=== PATIENT | female | born 1990 | race Caucasian/White ===

== ENCOUNTER → 2017-10-01 09:02 | Outpatient (CLI) | payer OTHER, SELFPAY ==
[2017-10-01 09:49] LABS: Pregnancy, Serum, hCG Quali. POSITIVE Negative (0-9 Nonpreg)
== END ==
PROVIDERS: Family Provider Family Medicine; PCP Family Medicine; Visit Provider Family Medicine
DX: N91.2 Amenorrhea, unspecified (principal)
CPT/HCPCS: 36415; 84703

== ENCOUNTER → 2017-10-10 10:33 | Outpatient (CLI) | payer OTHER, SELFPAY ==
[2017-10-10 11:03] LABS: hCG Titer Quant., Serum 13 mIU/mL (<9 non-preg)
== END ==
PROVIDERS: Family Provider Family Medicine; PCP Family Medicine; Visit Provider Obstetrics & Gynecology
DX: O20.0 Threatened abortion (principal); Z3A.00 Weeks of gestation of pregnancy not specified
CPT/HCPCS: 36415; 84702; 86850; 86900

== ENCOUNTER → 2017-10-15 06:10 | Outpatient (CLI) | payer OTHER, SELFPAY ==
[2017-10-15 08:17] LABS: hCG Titer Quant., Serum 1 mIU/mL (<9 non-preg)
== END ==
PROVIDERS: Family Provider Family Medicine; PCP Family Medicine; Visit Provider Obstetrics & Gynecology
DX: O20.0 Threatened abortion (principal); Z3A.00 Weeks of gestation of pregnancy not specified
CPT/HCPCS: 36415; 84702

== ENCOUNTER 2017-11-27 20:10 | Emergency (ER) | payer OTHER, SELFPAY ==
[2017-11-27 20:10] VITALS: BP 122/87; PULSE 52; RESP 18; TEMP 36.4; O2SAT 96; BMI 24.1
--- NOTE | 2017-11-27 20:32 | ED.VISSUMM ---
- ER Visit Summary Date of Service: 11/27/17 Chief Complaint: Back pain History of Present Illness: The patient is a 27 F who was throwing a bag of trash into the [employer] when she felt a pulling sensation in her left lower back and developed left lower back pain radiating down her left buttock into her thigh. No groin paresthesias or lower extremity weakness. No falls. She is still able to walk but the pain is worse when she bends forward or walks. She has had a history of chronic back trouble but never anything like this. She has never had to have physical therapy or have imaging. It is currently moderate in severity. Physical Examination: Vitals are within normal limits. She is not in distress. No fever. She has paraspinal lumbar tenderness on the left but no midline tenderness, erythema, or fluctuance. Normal strength and sensation in both lower extremities. No rebound. No clonus. Reflexes normal and symmetric. Test Results: None performed Emergency Department Course and Treatment: She was given Toradol and Norflex here. I do not feel she needs emergent imaging at this time. No evidence of cauda equina or paraspinal/epidural abscess. Presentation appears consistent with sciatica. I will treat her with a Medrol Dosepak, muscle relaxers, and naproxen. Will follow up closely with her doctor and return here if worse. Treatment Plan: Follow-up with primary care physician Disposition: Home stable condition Impression: Initial encounter lumbar back pain with sciatica left-sided This note was generated with [email or web address] dictation software. It may contain incorrect words, spelling, and punctuation that were not noted in review of the chart prior to signing ED Disposition - Plan for ED Patient: Chief Complaint: Back Instructions: ED Sciatica Prescriptions: MethylPREDNISolone DosePak [Medrol DosePak] 4 mg PO UD #1 box Naproxen [Naprosyn] 500 mg PO BID PRN #20 tablet Tizanidine HCl [Zanaflex] 4 mg PO TID PRN #30 tablet PRN Reason: Pain Referrals: Yovany Ying [Primary Care Provider] - 1-2 Days if not improving
[2017-11-27 20:35] VITALS: BP 132/70; PULSE 55; RESP 14; O2SAT 99
--- NOTE | 2017-11-27 20:36 | ED.DCSUM_ITS ---
- ER Visit Summary Date of Service: 11/27/17 Chief Complaint: Back pain History of Present Illness: The patient is a 27 F who was throwing a bag of trash into the [employer] when she felt a pulling sensation in her left lower back and developed left lower back pain radiating down her left buttock into her thigh. No groin paresthesias or lower extremity weakness. No falls. She is still able to walk but the pain is worse when she bends forward or walks. She has had a history of chronic back trouble but never anything like this. She has never had to have physical therapy or have imaging. It is currently moderate in severity. Physical Examination: Vitals are within normal limits. She is not in distress. No fever. She has paraspinal lumbar tenderness on the left but no midline tenderness, erythema, or fluctuance. Normal strength and sensation in both lower extremities. No rebound. No clonus. Reflexes normal and symmetric. Test Results: None performed Emergency Department Course and Treatment: She was given Toradol and Norflex here. I do not feel she needs emergent imaging at this time. No evidence of cauda equina or paraspinal/epidural abscess. Presentation appears consistent with sciatica. I will treat her with a Medrol Dosepak, muscle relaxers, and naproxen. Will follow up closely with her doctor and return here if worse. Treatment Plan: Follow-up with primary care physician Disposition: Home stable condition Impression: Initial encounter lumbar back pain with sciatica left-sided This note was generated with [employer] dictation software. It may contain incorrect words, spelling, and punctuation that were not noted in review of the chart prior to signing ED Disposition - Plan for ED Patient: Chief Complaint: Back Instructions: ED Sciatica Prescriptions: MethylPREDNISolone DosePak [Medrol DosePak] 4 mg PO UD #1 box Naproxen [Naprosyn] 500 mg PO BID PRN #20 tablet Tizanidine HCl [Zanaflex] 4 mg PO TID PRN #30 tablet PRN Reason: Pain Referrals: Yovany Ying [Primary Care Provider] - 1-2 Days if not improving
--- NOTE | 2017-11-27 20:38 | ED.VISSUMM ---
- ER Visit Summary Date of Service: 11/27/17 Chief Complaint: [] History of Present Illness: The patient is a 27 F [] Physical Examination: [] Test Results: [] Emergency Department Course and Treatment: [] Treatment Plan: [] Disposition: [] Impression: [] This note was generated with [employer] dictation software. It may contain incorrect words, spelling, and punctuation that were not noted in review of the chart prior to signing ED Disposition - Plan for ED Patient: Chief Complaint: Back Instructions: ED Sciatica Prescriptions: MethylPREDNISolone DosePak [Medrol DosePak] 4 mg PO UD #1 box Naproxen [Naprosyn] 500 mg PO BID PRN #20 tablet Tizanidine HCl [Zanaflex] 4 mg PO TID PRN #30 tablet PRN Reason: Pain Referrals: Yovany Ying [Primary Care Provider] - 1-2 Days if not improving
[2017-11-27] MEDS: Ketorolac 60 MG/2 ML Vial IM (20:54)
[2017-11-27] MEDS: Orphenadrine 60 MG/2 ML Ampul IM (20:54)
== END 2017-11-27 21:02 | disposition home or self-care (01) ==
LOC: ED 20:31
PROVIDERS: Emergency Provider Emergency Medicine; Family Provider Family Medicine; PCP Family Medicine
DX: M54.42 Lumbago with sciatica, left side (principal)
CPT/HCPCS: 96372; 99282

== ENCOUNTER 2018-09-26 23:35 | Emergency (ER) | payer OTHER, SELFPAY ==
[2018-09-26 23:35] VITALS: BP 140/78; PULSE 98; RESP 16; TEMP 37.1; O2SAT 100; BMI 25.0
--- NOTE | 2018-09-27 | EKG12_ITS ---
Test Reason : REPEAT Blood Pressure : / mmHG Vent. Rate : 087 BPM Atrial Rate : 087 BPM P-R Int : 126 ms QRS Dur : 082 ms QT Int : 344 ms P-R-T Axes : 072 068 059 degrees QTc Int : 413 ms Normal sinus rhythm Normal ECG Confirmed by CLIFF TORO ([id number]), department editor WHITNEY TAM ([id number]) on 09/29/2018 4:29:22 PM Referred By: KURT Confirmed By:CLIFF TORO
[2018-09-27 00:04] VITALS: PULSE 107; RESP 11; O2SAT 100
[2018-09-27 00:32] LABS: Absolute Lymphocyte Count 3.38 X10^3/ul (0.83-4.51); Absolute Neutrophil Count 3.5 X10^3/uL (2.0-7.7); Basophil# 0.04 X10^3/uL; Basophil% 0.5 % (0-1); Eosinophil# 0.53 X10^3/uL; Eosinophils% 6.2 % (0-5); Hematocrit 38.3 % (37-47); Hemoglobin 13.2 g/dl (12.0-15.0); Lymphocyte # 3.38 X10^3/ul (4.0); Lymphocyte % 39.5 % (19-41); Mean Corp Hgb Conc 34.5 g/gl (32-36); Mean Corpuscular Hgb 31.7 pg (27.0-32.0); Mean Corpuscular Volume 92.1 fL (81-99); Mean Platelet Vol. 9.1 fl (6.2-12.0); Monocyte% 12.9 % (0-10); Neutrophil # 3.49 X10^3/uL (2.7-7.7); Neutrophil % 40.8 % (47-70); POSITIVE COUNT NO; POSITIVE DIFFERENTIAL NO; POSITIVE MORPHOLOGY NO; Platelet Count 322 K/mm3 (150-450); RBC Distribution Width CV 11.9 % (11.6-14.6); RBC Distribution Width SD 39.5 fl (35.1-43.9); Red Blood Count 4.16 M/mm3 (4.2-5.4); White Blood Count 8.6 K/mm3 (4.4-11.0)
[2018-09-27 00:47] LABS: Anion Gap 5 (5-15); BUN 15 mg/dL (7-18); BUN/Creat Ratio 18.5 RATIO (10-20); Calcium,Total 8.8 mg/dL (8.5-10.1); Chloride 107 mmol/L (98-107); Creatinine, Serum 0.81 mg/dL (0.55-1.02); D-Dimer Quantitative (DVT/PE) 0.36 FEU/ug/m (0.27-0.49); EST Glomerular Filtration Rate 89 mL/min (>60); Est Glom Filt Rate - Afr Amer 108 mL/min (>60); Estimated Creatinine Clearance 93.05 ml/min; Glucose 108 mg/dL (74-106); Potassium 2.9 mmol/L (3.5-5.1); Sodium Level 137 mmol/L (136-145)
--- NOTE | 2018-09-27 00:58 | ED.VIS.GEN ---
History of Present Illness Chief Complaint: Palpitations Informant: Patient Onset: Days - 2-3 Context: Gradual Onset Timing: Intermittent Quality: skipping/beating hard Location: chest Current Severity: Moderate Maximum Severity: Moderate Worsened by: nothing in particular Relieved by: nothing Associated Symptoms: sob. no chest pain. no lightheadedness/near-syncope. Narrative: Patient works here in the hospital, she is a admin secretary. She has had no significant immobilization recently except for a trip to and from [place] that was 1 month ago, she denies any pain or swelling in 1 of her legs. No history of DVT or PE. She has never had these symptoms before. There is no history of congenital heart disease in the family that she knows of, or sudden cardiac in someone who is young. She had a cold last week but it is gone, she has taken no glty-phb-naluxhx medications for decongestants. She takes no prescriptions, illicit drugs, she is a non-smoker, and drinks no caffeine. Prior similar symptoms: No Recent Illness/Hospitalization: No Past Medical History - Allergies and Home Meds Allergies/Adverse Reactions: Allergies bee venom protein (honey bee) Allergy (Verified 09/26/18 23:38) Shortness of breath Primary Care Physician: Fabrizio Motta [Primary Care Provider] - Past Medical History: None Surgical History: no surgical history Lives: Alone Smoking Status: Never smoker Drugs: None Review of Systems General: Denies: Chills, Fever, Sweats Eyes: Denies: Visual changes - bilaterally, Diplopia ENT: Denies: Rhinorrhea, Sore throat Cardiovascular: Reports: Palpitations. Denies: Chest pain Respiratory: Reports: Dyspnea. Denies: Cough, Dyspnea on exertion Gastrointestinal: Denies: Abdominal pain, Nausea, Vomiting, Diarrhea, Melena, Hematochezia Genitourinary: Denies: Dysuria, Hematuria, Frequency Musculoskeletal: Denies: Back pain, Extremity Pain Skin: Denies: Rash, Wounds Neurological: Denies: Headache, Weakness, Numbness Physical Exam Vital Signs/Narrative: Vital Signs Temp Pulse Resp BP Pulse Ox 09/27/18 00:04 107 H 11 L 100 09/26/18 23:35 98.7 F 98 16 140/78 H 100 Inital Vital Signs reviewed: Yes General: Well nourished, Well developed, No Acute Distress Head: Normocephalic, Atraumatic Eyes: Perrl, EOMI ENT: Moist mucous membranes, No rhinorrhea Neck: Supple, Nontender Cardiovascular: No murmurs, Normal S1, Normal S2, Irregular - Occasionally. Mostly regular., Tachycardia - mild Respiratory: No distress, CTA bilaterally, Chest nontender Abdomen: Soft, Nontender, Nondistended, Normal bowel sounds Back: Nontender, Normal Inspection Extremities: Nontender, No edema Skin: Normal color, No rash, No Trauma Neurological: Alert, Oriented x3, Cranial nerves II-XII grossly intact, Normal Strength, Normal Sensation Psychological: Normal affect, Normal Mood Diagnostic/Tx/Re-eval Laboratory Results 09/27/18 09/27/18 09/27/18 00:15 00:15 00:15 WBC 8.6 RBC 4.16 L Hgb 13.2 Hct 38.3 MCV 92.1 MCH 31.7 MCHC 34.5 RDW 11.9 RDW Differential 39.5 Plt Count 322 MPV 9.1 Immature Gran % (Auto) 0.100 Neut % (Auto) 40.8 L Lymph % (Auto) 39.5 [place] % (Auto) 12.9 H Eos % (Auto) 6.2 H Baso % (Auto) 0.5 Absolute Neuts (auto) 3.5 Absolute Lymphs (auto) 3.38 Total Counted Not Reportable D-Dimer Quant (PE/DVT) 0.36 Sodium 137 Potassium 2.9 L Chloride 107 Carbon Dioxide 25.0 Anion Gap 5 BUN 15 Creatinine 0.81 Estim Creat Clear Calc 93.05 Est GFR (MDRD) Af Amer 108 Est GFR (MDRD) Non-Af 89 BUN/Creatinine Ratio 18.5 Glucose 108 H Calcium 8.8 Troponin I < 0.015 - Rhythm Strip Rhythm Strip: Sinus Tach - w/ possible second rhythm Rate: 105 - EKG Initial EKG Interpretation: Sinus Rhythm, No Acute Injury Pattern, - - aberrancy w/ wide complexes. no delta wave. Prior: No Prior - Medical Decision Making Workup shows low potassium at 2.9. The rest of her tests including troponin and d-dimer are normal. Her EKG appears to show an aberrancy but no dysrhythmia. I discussed all this with Dr. Munoz on-call for cardiology, he suggest sending her home on an AV jerad ermelinda, replacing her potassium, and having her follow-up closely in the office. Patient is comfortable with that plan. ED Disposition - Plan for ED Patient: Disposition: Home or Assisted Living Diagnosis: Aberrant premature complexes, Palpitations, Hypokalemia Instructions: Premature Ventricular Contractions, ED Palpitations, ED Potassium Deficiency Prescriptions: Metoprolol Tartrate 25 mg PO BID #60 tab Potassium Chloride [K-Dur] 20 meq PO BID #20 tab Referrals: Fabrizio Motta [Primary Care Provider] - [facility] [Provider Group] (Call for appointment to be seen as soon as you are able)
[2018-09-27 01:25] VITALS: BP 118/65; PULSE 105; RESP 14; O2SAT 98
[2018-09-27] MEDS: Metoprolol Tartrate 5 MG/5 ML Vial IV (01:33)
[2018-09-27] MEDS: Potassium Chloride 10mEq/100mL 10 MEQ/100 ML IV.SOLN. 100 MEQ IV BOLUS (01:39)
[2018-09-27 01:46] VITALS: BP 131/78; PULSE 118; RESP 14; O2SAT 98
--- NOTE | 2018-09-27 01:56 | EKG12_ITS ---
Test Reason : PALPITATIONS Blood Pressure : / mmHG Vent. Rate : 114 BPM Atrial Rate : 114 BPM P-R Int : 116 ms QRS Dur : 076 ms QT Int : 312 ms P-R-T Axes : 070 059 049 degrees QTc Int : 430 ms Sinus tachycardia with Left bundle branch block Nonspecific T wave abnormality Abnormal ECG Confirmed by CLIFF TORO ([id number]), advertising editor WHITNEY TAM ([id number]) on 09/29/2018 4:30:28 PM Referred By: KURT Confirmed By:CLIFF TORO
== END 2018-09-27 03:02 | disposition home or self-care (01) ==
PROVIDERS: Emergency Provider Emergency Medicine; Family Provider Family Medicine; PCP Family Medicine
DX: I49.3 Ventricular premature depolarization (principal); R00.2 Palpitations; E87.6 Hypokalemia
CPT/HCPCS: 80048; 84484; 85025; 85379; 93005; 96365; 96375; 99284

== ENCOUNTER → 2018-10-06 09:07 | Outpatient (CLI) | payer OTHER, SELFPAY ==
[2018-09-26 23:35] VITALS: BMI 25.0
[2018-10-06 10:07] LABS: Anion Gap 6 (5-15); BUN 14 mg/dL (7-18); BUN/Creat Ratio 18.2 RATIO (10-20); Calcium,Total 8.2 mg/dL (8.5-10.1); Chloride 106 mmol/L (98-107); Creatinine, Serum 0.77 mg/dL (0.55-1.02); EST Glomerular Filtration Rate 95 mL/min (>60); Est Glom Filt Rate - Afr Amer 115 mL/min (>60); Free T3 2.8 pg/mL (2.18-3.98); Glucose 91 mg/dL (74-106); Potassium 3.5 mmol/L (3.5-5.1); Sodium Level 141 mmol/L (136-145); T4 Total, Thyroxin 7.8 ug/dL (4.8-13.9); Thyroid Stim Hormone (TSH) 1.27 uIU/mL (0.358-3.74)
== END ==
PROVIDERS: Family Provider Family Medicine; PCP Family Medicine; Referring Provider Family Medicine; Visit Provider Family Medicine
DX: I49.3 Ventricular premature depolarization (principal)
CPT/HCPCS: 36415; 80048; 84436; 84443; 84481

== ENCOUNTER → 2018-10-21 08:58 | Outpatient (CLI) | payer OTHER, SELFPAY ==
[2018-10-16 10:39] VITALS: BMI 25.2
== END ==
PROVIDERS: Family Provider Family Medicine; PCP Family Medicine; Referring Provider Internal Medicine Cardiovascular Disease; Visit Provider Internal Medicine Cardiovascular Disease
DX: R00.2 Palpitations (principal); I44.7 Left bundle-branch block, unspecified
CPT/HCPCS: 93225; 93226

== ENCOUNTER → 2018-11-04 10:55 | Outpatient (CLI) | payer OTHER, SELFPAY ==
[2018-10-16 10:39] VITALS: BMI 25.2
--- NOTE | 2018-11-04 10:56 | ECHOD_ITS ---
Reason For Study: PALPITAITONS Procedure This was a 2D Doppler, Color Flow transthoracic echocardiogram. Exam performed in department. Left Ventricle Normal LV size. Left ventricular systolic function is normal. The estimated ejection fraction is 60 %. No evidence for diastolic dysfunction. No regional wall motion abnormalities noted. Right Ventricle Normal RV size. Normal systolic function. Atria Normal left atrium. Normal right atrium. No doppler evidence for ASD. Mitral Valve There is no mitral annular calcification. Mild diffuse mitral valve thickening. Mild (1+) mitral valve insufficiency. Tricuspid Valve Normal tricuspid valve. Mild tricuspid valve insufficiency. Right ventricular systolic pressure estimated to be 30 mmHg. Aortic Valve Trisinus/trileaflet aortic valve. Normal aortic valve. Pulmonic Valve The pulmonic valve is not well visualized. Great Vessels Normal sized aortic root. Pericardium/Pleural No pericardial effusion. MMode/2D Measurements & Calculations LVIDd: 4.7 cm IVSd: 0.77 cm Ao root diam: 2.0 cm LVIDs: 3.1 cm LVPWd: 0.83 cm RVDd: 2.8 cm FS: 34.2 % LAV(MOD-bp): 32.7 ml LA A4 area: 11.9 cm2 LA dimension(2D): 3.0 cm LAV(MOD-bp) Indexed: 18.4 ml/m2 LAV(MOD-sp2): 34.3 ml LAV(MOD-sp4): 27.1 ml RA A4 area: 7.5 cm2 Time Measurements MV dec time: 0.17 sec Doppler Measurements & Calculations MV E max jose: 107.1 cm/sec Lat Peak E' Jose: 16.0 cm/sec Med Peak E' Jose: 13.0 cm/sec MV A max jose: 57.5 cm/sec E/E' lat: 6.7 E/E' med: 8.2 MV E/A: 1.9 Ao V2 max: 131.4 cm/sec LV V1 max: 108.5 cm/sec TR max jose: 258.7 cm/sec Ao max P.9 mmHg LV V1 max P.7 mmHg TR max P.8 mmHg Interpretation Summary Left ventricular systolic function is normal. The estimated ejection fraction is 60 %. Mild diffuse mitral valve thickening. Mild (1+) mitral valve insufficiency. Mild tricuspid valve insufficiency. Right ventricular systolic pressure estimated to be 30 mmHg. No evidence for diastolic dysfunction. Ordering Physician: Fabrizio Golden Referring Physician: FABRIZIO RODRIGUEZ Performed By: Marisabel Ireland, DENNIS, RVT
--- NOTE | 2018-11-04 12:49 | STRESSREP ---
Stress Test Report Date: 11-04-18 Procedure: Exercise tolerance test Indications: Palpitations; shortness of breath/dyspnea Consent: Per the patient Procedure: The patient exercised on a Cristopher protocol for 12 minutes completing Stage IV achieving a peak heart rate of 181 bpm (94 % predicted maximal heart rate) with a peak blood pressure 134/80 mmHg and a peak MET capacity of approximately 13 MET's. The baseline ECG demonstrated normal sinus rhythm; nonspecific T wave abnormality. The peak exercise ECG demonstrated no obvious ECG changes. There were no cardiac dysrhythmias pretest, during exercise, or recovery. The functional capacity was considered excellent. The patient had no complaint of chest discomfort during exercise or recovery. The examination was discontinued secondary to dyspnea. Impression: 1. Technically adequate (percent predicted maximal heart rate greater than 85%) exercise tolerance test 2. Peak exercise ECG with no obvious ECG changes 3. There were no cardiac dysrhythmias during exercise or recovery This note was generated with [employer] software. It may contain incorrect words, spelling, and punctuation that were not noted in checking the note before signing.
[2018-11-04 15:34] LABS: Potassium 3.5 mmol/L (3.5-5.1)
== END ==
PROVIDERS: Family Medicine; Family Provider Family Medicine; PCP Family Medicine; Referring Provider Internal Medicine Cardiovascular Disease; Visit Provider Internal Medicine Cardiovascular Disease
DX: R00.2 Palpitations (principal); I44.7 Left bundle-branch block, unspecified; E87.6 Hypokalemia
CPT/HCPCS: 36415; 84132; 93017; 93306

== ENCOUNTER 2019-03-12 18:22 | Emergency (ER) | payer OTHER, SELFPAY ==
[2018-10-16 10:39] VITALS: BMI 25.2
[2019-03-12 18:23] VITALS: BP 100/69; PULSE 125; RESP 17; TEMP 38.8; O2SAT 94; BMI 24.7
--- NOTE | 2019-03-12 19:10 | ED.DCSUM_ITS ---
History of Present Illness Chief Complaint: Nausea/Vomiting/Diarrhea Informant: Patient Onset: Days Current Severity: Moderate Maximum Severity: Moderate Narrative: Patient presents with abdominal cramping, nausea, dry heaves, and mild diarrhea for the past 3 days. She did not realize she been running a fever. She is been trying to drink but is only been urinating once or twice a day. She does not have dysuria. She denies shortness of breath or cough. Patient does have a history of left bundle branch block and palpitations. She saw her manager mail last week who told her she could use her metoprolol as needed only. She has not been taking it this week. Past Medical History - Allergies and Home Meds Allergies/Adverse Reactions: Allergies bee venom protein (honey bee) Allergy (Verified 03/12/19 18:23) Shortness of breath Primary Care Physician: Fabrizio Motta [Primary Care Provider] - 3-5 Days if not improving Prior records reviewed: Yes Past Medical History: - - Reviewed Surgical History: no surgical history Lives: Spouse/ Significant Other Smoking Status: Never smoker Review of Systems General: Denies: Fever Eyes: Denies: Visual changes - bilaterally ENT: Denies: Bilateral ear pain Cardiovascular: Reports: Palpitations, Heart racing Respiratory: Denies: Dyspnea, Cough, Sputum Gastrointestinal: Reports: Abdominal pain - Cramping, Nausea, Vomiting - Dry heaves, Diarrhea Genitourinary: Denies: Dysuria Skin: Denies: Rash Neurological: Denies: Headache Endocrine: Denies: Polyuria, Polydipsia Hematologic: Denies: Easy bruising Allergy: Denies: Uticaria Physical Exam Vital Signs/Narrative: Vital Signs Temp Pulse Resp BP Pulse Ox 03/12/19 18:23 102 F H 125 H 17 100/69 94 Inital Vital Signs reviewed: Yes General: Well nourished, Well developed Eyes: Perrl, EOMI ENT: Moist mucous membranes Neck: Supple Cardiovascular: Tachycardia Respiratory: No distress, CTA bilaterally Abdomen: Soft, Nontender, Hypoactive bowel sounds Back: Nontender Extremities: Nontender Skin: Normal color, No rash Neurological: Alert, Oriented x3 Psychological: Normal affect Diagnostic/Tx/Re-eval Laboratory Results 03/12/19 03/12/19 03/12/19 18:40 18:40 18:40 WBC 6.8 RBC 4.90 Hgb 15.8 H Hct 44.2 MCV 90.2 MCH 32.2 H MCHC 35.7 RDW Std Deviation 38.2 RDW Coeff of Hortencia 11.5 L Plt Count 241 MPV 8.9 Immature Gran % (Auto) 0.300 Neut % (Auto) 61.1 Lymph % (Auto) 16.3 L [place] % (Auto) 16.8 H Eos % (Auto) 4.9 Baso % (Auto) 0.6 Absolute Neuts (auto) 4.2 Absolute Lymphs (auto) 1.11 Nucleated RBC % 0 Sodium 136 Potassium 3.2 L Chloride 103 Carbon Dioxide 26.0 Anion Gap 7 BUN 12 Creatinine 0.90 Estim Creat Clear Calc 83.74 Est GFR (MDRD) Af Amer 96 Est GFR (MDRD) Non-Af 79 BUN/Creatinine Ratio 13.4 Glucose 98 Lactic Acid 1.0 Calcium 8.6 Total Bilirubin 0.60 Direct Bilirubin 0.19 AST 27 ALT 23 Alkaline Phosphatase 53 Total Protein 8.5 H Albumin 4.0 Globulin 4.5 H Lipase 109 Serum , Qual Urine Color Urine Clarity Urine pH Ur Specific [place] Urine Protein Urine Glucose (UA) Urine Ketones Urine Occult Blood Urine Nitrite Urine Bilirubin Urine Urobilinogen Ur Leukocyte Esterase Urine RBC Urine WBC Ur Squamous Epith Cells Urine Bacteria Urine Mucus 03/12/19 03/12/19 18:40 20:39 WBC RBC Hgb Hct MCV MCH MCHC RDW Std Deviation RDW Coeff of Hortencia Plt Count MPV Immature Gran % (Auto) Neut % (Auto) Lymph % (Auto) [place] % (Auto) Eos % (Auto) Baso % (Auto) Absolute Neuts (auto) Absolute Lymphs (auto) Nucleated RBC % Sodium Potassium Chloride Carbon Dioxide Anion Gap BUN Creatinine Estim Creat Clear Calc Est GFR (MDRD) Af Amer Est GFR (MDRD) Non-Af BUN/Creatinine Ratio Glucose Lactic Acid Calcium Total Bilirubin Direct Bilirubin AST ALT Alkaline Phosphatase Total Protein Albumin Globulin Lipase Serum , Qual NEGATIVE Urine Color Yellow Urine Clarity Sl. Cloudy Urine pH 6.5 Ur Specific [place] 1.010 Urine Protein 15 H Urine Glucose (UA) Normal Urine Ketones 150 H Urine Occult Blood 10 H Urine Nitrite Negative Urine Bilirubin Negative Urine Urobilinogen Normal Ur Leukocyte Esterase 25 H Urine RBC 0-5 SEEN Urine WBC 5-10 SEEN Ur Squamous Epith Cells 10-25 SEEN Urine Bacteria 2+ Urine Mucus 0 SEEN - EKG Initial EKG Interpretation: Sinus Tachycardia - Sinus tach at 109. Nonspecific T wave flattening diffusely. - Medical Decision Making Patient was given Tylenol and IV fluids. She was given Zofran for nausea. On repeat evaluation heart rate is in the 80s. She feels significantly improved. Potassium was slightly low at 3.2 and she was given 40 mEq p.o. She will be given prescription for potassium replacement the next 3 days. She will be written off work tomorrow night and cannot return the following day if still running fever. Patient is comfortable with this plan. ED Disposition - Plan for ED Patient: Disposition: Home or Assisted Living Diagnosis: Viral gastroenteritis, Hypokalemia Instructions: GASTROENTERITIS, Viral (6y-Adult) Prescriptions: Potassium Chloride [K-Dur] 20 meq PO BID #6 tab Prescription Printed Referrals: Fabrizio Motta [Primary Care Provider] - 3-5 Days if not improving
[2019-03-12] MEDS: Acetaminophen 500 MG Tablet 1000 MG PO (19:15)
[2019-03-12] MEDS: Ondansetron 4 MG/2 ML Vial IV (19:23)
[2019-03-12] MEDS: 0.9% Normal Saline 1,000 ML 1000 ML IV ×2 (19:24→20:10)
[2019-03-12 19:25] LABS: Absolute Lymphocyte Count 1.11 X10^3/uL (0.83-4.51); Absolute Neutrophil Count 4.2 X10^3/uL (2.0-7.7); Basophil# 0.04 X10^3/uL; Basophil% 0.6 % (0-1); Eosinophil# 0.33 X10^3/uL; Eosinophils% 4.9 % (0-5); Hematocrit 44.2 % (37-47); Hemoglobin 15.8 g/dL (12.0-15.0); Lymphocyte # 1.11 X10^3/ul (4.0); Lymphocyte % 16.3 % (19-41); Mean Corp Hgb Conc 35.7 g/dL (32-36); Mean Corpuscular Hgb 32.2 pg (27.0-32.0); Mean Corpuscular Volume 90.2 fL (81-99); Mean Platelet Vol. 8.9 fl (6.2-12.0); Monocyte# 1.14 X10^3/uL; Monocyte% 16.8 % (0-10); NRBC Flagged by Analyzer 0 % (0-5); Neutrophil # 4.16 X10^3/uL (2.7-7.7); Neutrophil % 61.1 % (47-70); Platelet Count 241 K/mm3 (150-450); RBC Distribution Width CV 11.5 % (11.6-14.6); RBC Distribution Width SD 38.2 fl (35.1-43.9); White Blood Count 6.8 K/mm3 (4.4-11.0)
[2019-03-12 19:46] LABS: Internal QC Validated? YES +Cl - CLEAR BKGD; Pregnancy, Serum, hCG Quali. NEGATIVE Negative
[2019-03-12 19:52] LABS: AST(SGOT) 27 U/L (15-37); Alanine Aminotransfer ALT/SGPT 23 U/L (13-56); Alkaline Phosphatase 53 U/L (45-117); Anion Gap 7 (5-15); BUN 12 mg/dL (7-18); BUN/Creat Ratio 13.4 RATIO (10-20); Bilirubin, Direct 0.19 mg/dL (0.00-0.30); Calcium,Total 8.6 mg/dL (8.5-10.1); Chloride 103 mmol/L (98-107); EST Glomerular Filtration Rate 79 mL/min (>60); Est Glom Filt Rate - Afr Amer 96 mL/min (>60); Estimated Creatinine Clearance 83.74 ml/min; Globulin 4.5 g/dL (2.2-4.2); Glucose 98 mg/dL (74-106); Lipase 109 U/L (73-393); Potassium 3.2 mmol/L (3.5-5.1); Protein, Total 8.5 g/dL (6.4-8.2); Sodium Level 136 mmol/L (136-145)
[2019-03-12 20:43] LABS: Mucous, Urine 0 SEEN /hpf (<or=2+)
[2019-03-12 20:44] VITALS: BP 104/69; PULSE 86; RESP 16; TEMP 37.4; O2SAT 98
[2019-03-12 21:09] LABS: Color, Urine Yellow (Yellow); Glucose, Dipstick Normal (Normal); Leukocyte Esterase-Dipstick 25 /ul (Negative); Nitrite-Dipstick Negative (Negative); Occult Blood-Urine 10 /ul (Negative); Protein-Dipstick 15 mg/dl (Negative); Urine Bilirubin Dipstick Negative (Negative); Urine Clarity Sl. Cloudy (Clear); Urine Urobilinogen Normal (Normal); Urine pH 6.5 (5.0 - 8.0)
[2019-03-12 21:12] LABS: Ketone-Dipstick 150 mg/dl (Negative)
[2019-03-12 21:15] LABS: Bacteria 2+ /hpf (None Seen)
[2019-03-12 21:16] LABS: Red Blood Cells-Urine 0-5 SEEN /hpf (0-5); Squamous Epithelial Cells - UA 10-25 SEEN /hpf (5-10); White Blood Cells 5-10 SEEN /hpf (0-5)
[2019-03-12 21:38] VITALS: BP 110/72; PULSE 89; RESP 15; TEMP 37.2; O2SAT 97
== END 2019-03-12 21:41 | disposition home or self-care (01) ==
PROVIDERS: Emergency Provider Emergency Medicine; Family Provider Family Medicine; PCP Family Medicine
DX: A08.4 Viral intestinal infection, unspecified (principal); E87.6 Hypokalemia; I44.7 Left bundle-branch block, unspecified; R00.2 Palpitations
CPT/HCPCS: 80048; 80076; 81001; 83605; 83690; 84703; 85025; 87040; 93005; 96361; 96374; 99285; J7030; A4216; J2405

== ENCOUNTER 2019-03-15 00:14 | Emergency (ER) | payer OTHER, SELFPAY ==
[2019-03-15 00:15] VITALS: BP 136/84; PULSE 101; RESP 18; TEMP 37.2; O2SAT 99; BMI 24.7
--- NOTE | 2019-03-15 00:19 | CT_ITS ---
STUDY: CT ABDOMEN AND PELVIS WITH CONTRAST REASON FOR EXAM: Female, 28 years old. : Abdominal pain. Previous appendectomy. RADIATION DOSAGE (If Supplied By Facility): CTDIvol = ( 11.30 ) mGy, DLP = ( 651.58 ) mGycm TECHNIQUE: Transaxial images were obtained from the dome of the diaphragm to the symphysis pubis without oral contrast. 100ml IV Isovue 370 was administered. Sagittal and coronal images were reconstructed. Individualized dose optimization techniques were used for this CT. COMPARISON: None. FINDINGS: The lung bases are clear. The liver is normal. No dilated intrahepatic biliary radicles. The gallbladder is normal with no calcifications within it. There is no pericholecystic fluid collection or streakiness The spleen is normal. The pancreas is normal. Both adrenals are normal. The kidneys are normal with no masses, calculi or hydronephrosis The stomach is normal. There is no bowel distention, acute appendicitis or diverticulitis. No constricting lesions are seen in large bowel. The abdominal wall is intact with no hernias. There is no ascites or any free intraperitoneal air. No indication of epiploic appendagitis The vascular structures in the retroperitoneum are normal. There is no retrocrural, retroperitoneal or mesenteric adenopathy. The bones and joints are normal. The urinary bladder is normal.--The uterus is normal. There is no inguinal or pelvic adenopathy. There is no inguinal hernia. . CT/Abdomen/Pelvis W IV Cont ONLY IMPRESSION: No acute findings in the abdomen or pelvis. Specifically there is no acute appendicitis or diverticulitis Electronically Signed: Orlin Acosta MD at 1:42 EDT Tel , Service support ,
--- NOTE | 2019-03-15 00:22 | ED.DCSUM_ITS ---
History of Present Illness Chief Complaint: Abd Pain Informant: Patient Onset: Days Context: Gradual Onset Timing: Continuous Current Severity: Moderate Maximum Severity: Moderate Narrative: The patient presents to the emergency department nausea, vomiting, diarrhea, abdominal pain. The patient was seen here 3 days ago. At that time, she was diagnosed with likely gastroenteritis. She was treated with potassium Zofran. She states that her nausea has improved, but now she is been having bloody diarrhea with mucus today. She is also had some diffuse abdominal cramping. She has not had any further fever. She has no history of inflammatory bowel disease. She denies any other symptoms. The patient is otherwise been in her normal state of health. She denies any recent sick contacts. Prior similar symptoms: No Recent Illness/Hospitalization: Yes Past Medical History - Allergies and Home Meds Allergies/Adverse Reactions: Allergies bee venom protein (honey bee) Allergy (Verified 03/15/19 00:20) Shortness of breath Primary Care Physician: Fabrizio Motta [Primary Care Provider] - Prior records reviewed: Yes Past Medical History: None Surgical History: no surgical history Smoking Status: Never smoker Review of Systems General: Reports: Fever. Denies: Chills, Sweats Eyes: Denies: Visual changes - bilaterally, Diplopia ENT: Denies: Rhinorrhea, Sore throat Cardiovascular: Denies: Chest pain, Palpitations Respiratory: Denies: Dyspnea, Cough, Dyspnea on exertion Gastrointestinal: Reports: Abdominal pain, Nausea, Vomiting, Diarrhea. Denies: Melena, Hematochezia Genitourinary: Denies: Dysuria, Hematuria, Frequency Musculoskeletal: Denies: Back pain, Extremity Pain Skin: Denies: Rash, Wounds Neurological: Denies: Headache, Weakness, Numbness Physical Exam Vital Signs/Narrative: Vital Signs Temp Pulse Resp BP Pulse Ox 03/15/19 00:15 98.9 F 101 H 18 136/84 H 99 Inital Vital Signs reviewed: Yes General: Well nourished, Well developed, No Acute Distress Head: Normocephalic, Atraumatic Eyes: Perrl, EOMI ENT: Moist mucous membranes, No rhinorrhea Neck: Supple, Nontender Cardiovascular: Regular rate, Regular rhythm, No murmurs Respiratory: No distress, CTA bilaterally, Chest nontender Abdomen: Soft, Nontender, Nondistended, Normal bowel sounds Back: Nontender, Normal Inspection Extremities: Nontender, No edema Skin: Normal color, No rash Neurological: Alert, Oriented x3, Cranial nerves II-XII grossly intact, Normal Strength, Normal Sensation Psychological: Normal affect, Normal Mood Diagnostic/Tx/Re-eval Clinical Impression(s) from Imaging Studies Abdomen/Pelvis CT 03/15/19 00:19 IMPRESSION: No acute findings in the abdomen or pelvis. Specifically there is no acute appendicitis or diverticulitis Electronically Signed: Orlin Acosta MD at 1:42 EDT Tel , Service support , Abnormal Lab Results 03/15/19 03/15/19 03/15/19 00:25 00:25 00:30 WBC 8.1 RBC 4.59 Hgb 14.3 Hct 40.4 MCV 88.0 MCH 31.2 MCHC 35.4 RDW Std Deviation 37.5 RDW Coeff of Hortencia 11.7 Plt Count 222 MPV 9.0 Immature Gran % (Auto) PACKAGING MATERIALS INSPECTOR Neut % (Auto) PACKAGING MATERIALS INSPECTOR Lymph % (Auto) PACKAGING MATERIALS INSPECTOR [place] % (Auto) PACKAGING MATERIALS INSPECTOR Eos % (Auto) PACKAGING MATERIALS INSPECTOR Baso % (Auto) PACKAGING MATERIALS INSPECTOR Absolute Neuts (auto) 3.1 Absolute Lymphs (auto) 1.95 Total Counted 100 Neutrophils % (Manual) 18 L Band Neutrophils % 20 H Lymphocytes % (Manual) 24 Monocytes % (Manual) 12 H Eosinophils % (Manual) 8 H Basophils % (Manual) 1 Metamyelocytes % 16 H Myelocytes % 1 H Nucleated RBC % 0 [address] Review May foll Platelet Estimate ADEQUATE RBC Morphology NORM C+C Sodium Potassium Chloride Carbon Dioxide Anion Gap BUN Creatinine Estim Creat Clear Calc Est GFR (MDRD) Af Amer Est GFR (MDRD) Non-Af BUN/Creatinine Ratio Glucose Calcium Total Bilirubin AST ALT Alkaline Phosphatase Total Protein Albumin Globulin Albumin/Globulin Ratio Lipase Urine Color Yellow Urine Clarity Sl. Cloudy Urine pH 6.0 Ur Specific [place] 1.020 Urine Protein 15 H Urine Glucose (UA) Normal Urine Ketones 50 H Urine Occult Blood 10 H Urine Nitrite Negative Urine Bilirubin Negative Urine Urobilinogen Normal Ur Leukocyte Esterase 25 H Urine RBC 0-5 SEEN Urine WBC 5-10 SEEN Ur Squamous Epith Cells 0-5 SEEN Urine Bacteria 2+ Urine Mucus 0 SEEN Urine Test Negative 03/15/19 00:30 WBC RBC Hgb Hct MCV MCH MCHC RDW Std Deviation RDW Coeff of Hortencia Plt Count MPV Immature Gran % (Auto) Neut % (Auto) Lymph % (Auto) [place] % (Auto) Eos % (Auto) Baso % (Auto) Absolute Neuts (auto) Absolute Lymphs (auto) Total Counted Neutrophils % (Manual) Band Neutrophils % Lymphocytes % (Manual) Monocytes % (Manual) Eosinophils % (Manual) Basophils % (Manual) Metamyelocytes % Myelocytes % Nucleated RBC % Diff Path Review Platelet Estimate RBC Morphology Sodium 140 Potassium 3.3 L Chloride 109 H Carbon Dioxide 24.0 Anion Gap 7 BUN 7 Creatinine 0.73 Estim Creat Clear Calc 103.24 Est GFR (MDRD) Af Amer 121 Est GFR (MDRD) Non-Af 100 BUN/Creatinine Ratio 9.6 L Glucose 85 Calcium 8.3 L Total Bilirubin 0.40 AST 28 ALT 32 Alkaline Phosphatase 54 Total Protein 7.4 Albumin 3.4 Globulin 4.0 Albumin/Globulin Ratio 0.8 L Lipase 97 Urine Color Urine Clarity Urine pH Ur Specific [place] Urine Protein Urine Glucose (UA) Urine Ketones Urine Occult Blood Urine Nitrite Urine Bilirubin Urine Urobilinogen Ur Leukocyte Esterase Urine RBC Urine WBC Ur Squamous Epith Cells Urine Bacteria Urine Mucus Urine Test - Medical Decision Making Patient presents with persistent abdominal cramping, nausea, and diarrhea with some mucus. Her fever has since resolved. Her abdomen is soft and mildly distended. IV was established. She was given fluids with improvement of her symptoms. I did obtain CT imaging. There is no significant colitis, diverticulitis, obstruction, or significant inflammatory process. Her white count is unremarkable, but she does have a left shift. Stool culture was sent but is currently pending. Given the persistence of her symptoms, I do feel that the safest thing would be to treat her for common pathogens of infectious diarrhea and the results. I do feel that she is safe for outpatient therapy and she is comfortable with this plan of care. Patient will be started on Cipro and Flagyl and given her first dose here. I am also going to add Bentyl to her regimen. She is comfortable with this plan of care. She was counseled concerning symptoms and reasons to return. She will be discharged home. Impression 1. Infectious colitis ED Disposition - Plan for ED Patient: Instructions: DIARRHEA, Bacterial (6y-Adult) Prescriptions: Dicyclomine HCl [Bentyl] 20 mg PO TIDAC #20 cap Prescription Printed Ciprofloxacin [Cipro] 500 mg PO BID #14 tab Prescription Printed metroNIDAZOLE [Flagyl] 500 mg PO Q8H #21 tab Prescription Printed Referrals: Fabrizio Motta [Primary Care Provider] -
[2019-03-15 00:30] LABS: Mucous, Urine 0 SEEN /hpf (<or=2+)
[2019-03-15 00:38] LABS: Color, Urine Yellow (Yellow); Glucose, Dipstick Normal (Normal); Ketone-Dipstick 50 mg/dl (Negative); Leukocyte Esterase-Dipstick 25 /ul (Negative); Nitrite-Dipstick Negative (Negative); Occult Blood-Urine 10 /ul (Negative); Protein-Dipstick 15 mg/dl (Negative); Urine Bilirubin Dipstick Negative (Negative); Urine Clarity Sl. Cloudy (Clear); Urine Urobilinogen Normal (Normal)
[2019-03-15] MEDS: 0.9% Normal Saline 1,000 ML 1000 ML IV (00:38)
[2019-03-15] MEDS: Ondansetron 4 MG/2 ML Vial IV (00:38)
[2019-03-15 00:41] LABS: Internal QC Validated? YES +Cl - CLEAR BKGD; Pregnancy, Urine Negative Negative
[2019-03-15 00:42] LABS: Basophil# 0.04 X10^3/uL; Eosinophil# 0.49 X10^3/uL; Hematocrit 40.4 % (37-47); Hemoglobin 14.3 g/dL (12.0-15.0); Mean Corp Hgb Conc 35.4 g/dL (32-36); Mean Corpuscular Hgb 31.2 pg (27.0-32.0); Monocyte# 1.21 X10^3/uL; NRBC Flagged by Analyzer 0 % (0-5); POSITIVE MORPHOLOGY YES; Platelet Count 222 K/mm3 (150-450); RBC Distribution Width CV 11.7 % (11.6-14.6); RBC Distribution Width SD 37.5 fl (35.1-43.9); Red Blood Count 4.59 M/mm3 (4.2-5.4); White Blood Count 8.1 K/mm3 (4.4-11.0)
[2019-03-15 00:50] LABS: Differential Indicated SCAN CRITERIA MET
[2019-03-15 00:58] LABS: Bacteria 2+ /hpf (None Seen); Red Blood Cells-Urine 0-5 SEEN /hpf (0-5); Squamous Epithelial Cells - UA 0-5 SEEN /hpf (5-10); White Blood Cells 5-10 SEEN /hpf (0-5)
[2019-03-15 01:04] LABS: ALB/GLOB Ratio 0.8 RATIO (0.9-2.4); AST(SGOT) 28 U/L (15-37); Alanine Aminotransfer ALT/SGPT 32 U/L (13-56); Albumin, Serum 3.4 g/dL (3.2-5.0); Alkaline Phosphatase 54 U/L (45-117); Anion Gap 7 (5-15); BUN 7 mg/dL (7-18); BUN/Creat Ratio 9.6 RATIO (10-20); Calcium,Total 8.3 mg/dL (8.5-10.1); Chloride 109 mmol/L (98-107); Creatinine, Serum 0.73 mg/dL (0.55-1.02); EST Glomerular Filtration Rate 100 mL/min (>60); Est Glom Filt Rate - Afr Amer 121 mL/min (>60); Estimated Creatinine Clearance 103.24 ml/min; Glucose 85 mg/dL (74-106); Lipase 97 U/L (73-393); Potassium 3.3 mmol/L (3.5-5.1); Protein, Total 7.4 g/dL (6.4-8.2); Sodium Level 140 mmol/L (136-145)
[2019-03-15 01:09] LABS: Scan Smear per Review Criteria MANUAL DIFF
[2019-03-15 01:17] LABS: Basophil 1 % (0-1); Eosinophil 8 % (0-5); Lymphocyte 24 % (19-41); Metamyelocyte 16 % (0-1); Monocyte 12 % (0-10); Myelocyte 1 (0-0); Neutrophil-Band 20 % (0-5); Neutrophil-Segmented 18 % (47-70); Total Cells Counted 100 (MANUAL DIFF)
[2019-03-15 01:18] LABS: Absolute Neutrophil Count 3.1 X10^3/uL (2.0-7.7); Lymphocyte # 1.95 X10^3/ul (4.0); Neutrophil # 3.09 X10^3/uL (2.7-7.7)
[2019-03-15 01:19] LABS: Absolute Lymphocyte Count 1.95 X10^3/uL (0.83-4.51); Platelet Estimate ADEQUATE (ADEQ); Red Cell Morphology NORM C+C NORMAL (NORM C&C)
[2019-03-15] MEDS: metroNIDAZOLE 500 MG/100 ML BAG 100 MG IV (02:20)
[2019-03-15] MEDS: Dicyclomine 10 MG Capsule 20 MG PO (02:26)
[2019-03-15] MEDS: Ciprofloxacin 400 MG/200 ML BAG 200 MG IV (02:31)
[2019-03-15 03:48] VITALS: BP 95/61; PULSE 88; RESP 16; O2SAT 98
[2019-03-17 12:26] LABS: Pathologist Review Reviewed
== END 2019-03-15 03:50 | disposition home or self-care (01) ==
LOC: ED 00:54
PROVIDERS: Emergency Provider Emergency Medicine; Family Provider Family Medicine; PCP Family Medicine
DX: A09 Infectious gastroenteritis and colitis, unspecified (principal); Z79.899 Other long term (current) drug therapy
CPT/HCPCS: 74177; 80053; 81001; 81025; 83690; 85025; 87506; 96361; 96365; 96366; 96368; 96375; 99284; J7030; J7050; Q9967; A4216; J0744; J2405

== ENCOUNTER 2023-09-06 11:47 | Emergency (ER) | payer BC, SELFPAY ==
[2023-09-06 11:48] VITALS: BP 143/86; PULSE 111; RESP 16; TEMP 36.3; O2SAT 100; BMI 22.5
--- NOTE | 2023-09-06 12:00 | EKG12_ITS ---
Test Reason : PALPS Blood Pressure : / mmHG Vent. Rate : 096 BPM Atrial Rate : 096 BPM P-R Int : 112 ms QRS Dur : 074 ms QT Int : 350 ms P-R-T Axes : 082 077 002 degrees QTc Int : 442 ms Sinus rhythm with Fusion complexes Nonspecific ST and T wave abnormality Abnormal ECG Confirmed by CHUCHO VEGAS, ELLEN ([id number]), editorial assistant ROMA HUERTA ([id number]) on 09/09/2023 9:38:00 AM Referred By: NIA Confirmed By:ELLEN RANKIN MD
[2023-09-06 12:12] LABS: Absolute Lymphocyte Count 1.76 X10^3/uL (0.83-4.51); Absolute Neutrophil Count 5.3 X10^3/uL (2.0-7.7); Basophil# 0.06 X10^3/uL; Basophil% 0.7 % (0-1); Eosinophil# 0.29 X10^3/uL; Eosinophils% 3.5 % (0-5); Hematocrit 39.1 % (37-47); Hemoglobin 13.4 g/dL (12.0-15.0); Lymphocyte # 1.76 X10^3/ul (0.83-4.51); Lymphocyte % 21.1 % (19-41); Mean Corp Hgb Conc 34.3 g/dL (32-36); Mean Corpuscular Hgb 31.8 pg (27.0-32.0); Mean Corpuscular Volume 92.9 fL (81-99); Mean Platelet Vol. 8.8 fl (6.2-12.0); Monocyte# 0.91 X10^3/uL; Monocyte% 10.9 % (0-10); NRBC Flagged by Analyzer 0 % (0-5); Neutrophil # 5.29 X10^3/uL (2.7-7.7); Neutrophil % 63.6 % (47-70); Platelet Count 311 K/mm3 (150-450); RBC Distribution Width CV 11.9 % (11.6-14.6); RBC Distribution Width SD 40.7 fl (35.1-43.9); Red Blood Count 4.21 M/mm3 (4.2-5.4); White Blood Count 8.3 K/mm3 (4.4-11.0)
[2023-09-06 12:30] LABS: Anion Gap 6 (5-15); BUN 11 mg/dL (7-18); BUN/Creat Ratio 14.1 RATIO (10-20); Calcium,Total 8.8 mg/dL (8.5-10.1); Chloride 106 mmol/L (98-107); Creatinine, Serum 0.78 mg/dL (0.55-1.02); EST Glomerular Filtration Rate 91 mL/min (>60); Est Glom Filt Rate - Afr Amer 110 mL/min (>60); Estimated Creatinine Clearance 92.31 ml/min; Glucose 97 mg/dL (74-106); Potassium 3.7 mmol/L (3.5-5.1); Sodium Level 139 mmol/L (136-145); Troponin-I HS (w/2H Reflex) 26 pg/mL (3.0-54.0)
[2023-09-06 12:56] VITALS: BP 117/82; PULSE 83; RESP 12; O2SAT 100
[2023-09-06 13:00] VITALS: BP 108/70; PULSE 105; RESP 16; O2SAT 99
--- NOTE | 2023-09-06 13:13 | EKG12_ITS ---
Test Reason : REPEAT Blood Pressure : / mmHG Vent. Rate : 096 BPM Atrial Rate : 096 BPM P-R Int : 126 ms QRS Dur : 116 ms QT Int : 364 ms P-R-T Axes : 077 063 097 degrees QTc Int : 459 ms Normal sinus rhythm Septal infarct , age undetermined Abnormal ECG Confirmed by CHUCHO VEGAS, ELLEN ([id number]), greeting card editor ROMA HUERTA ([id number]) on 09/09/2023 9:40:25 AM Referred By: Confirmed By:ELLEN RANKIN MD
--- NOTE | 2023-09-06 13:27 | EX.ED.DYSGE1 ---
HPI <GLADIS Rice - Last Filed: 09/06/23 16:45> History of Present Illness Chief Complaint: Palpitations Narrative Narrative: Patient presenting today due to intermittent palpitations that started yesterday. She reports that she has an Apple Watch that told her that she was going into atrial fibrillation and then a undetermined rhythm. She reports a history of palpitations over the past few years and has seen cardiology and an roofer assistant for this in the past. Reports a history of hypokalemia. She reports that she overall does not feel well but denies fevers, chills, chest pain, shortness of breath, and caffeine use. She did have a unremarkable heart catheterization a few years ago as well as a stress test and Holter monitor. She denies any history of blood clots but does report recent travel from [place] on Saturday. PFSH <GLADIS Rice - Last Filed: 09/06/23 16:45> [facility] Medical History Hypokalemia LBBB (left bundle branch block) Palpitations Ventricular ectopy Home Medications ciprofloxacin HCl 500 mg tablet 500 mg PO BID #14 tabs 03/15/19 [Rx Last Taken Unknown] dicyclomine 10 mg capsule 20 mg (2 x 10 mg) PO TIDAC #20 caps 03/15/19 [Rx Last Taken Unknown] metoprolol tartrate 50 mg tablet 50 mg PO BID PRN sinus tach 03/15/19 [History Last Taken Unknown] metronidazole 500 mg tablet 500 mg PO Q8H #21 tabs 03/15/19 [Rx Last Taken Unknown] Allergy/AdvReac Type Severity Reaction Status Date / Time bee venom protein (honey bee) Allergy Shortness Verified 09/06/23 11:49 of breath Family History Grandmother Mitral valve prolapse Grandfather Atrial fibrillation Grandfather Aortic aneurysm Surgical History History of dilatation and curettage S/P right knee arthroscopy Social History Smoking Status: Never smoker alcohol intake: never substance use type: does not use caffeine: No ROS <GLADIS Rice - Last Filed: 09/06/23 16:45> ROS ED Constitutional Constitutional ED: Denies chills or fever(s) Cardiovascular Cardiovascular: Reports palpitations; Denies chest pain Respiratory/Chest Respiratory/Chest: Denies cough or dyspnea Gastrointestinal Gastrointestinal: Denies abdominal pain, nausea or vomiting Musculoskeletal Musculoskeletal: Denies arthralgias or myalgias Integumentary Denies rash Neurologic Neurologic: Denies weakness EXAM <GLADIS Rice - Last Filed: 09/06/23 16:45> Physical Exam Const Vital Signs: 09/06/23 11:48 09/06/23 12:54 09/06/23 12:55 Temperature 97.4 F L Temperature Source Temporal Pulse Rate 111 H Respiratory Rate 16 Respiratory Effort Normal Non-Labored Blood Pressure 143/86 H Blood Pressure Mean 105 Pulse Ox 100 Oxygen Delivery Method Room Air Room Air 09/06/23 12:56 09/06/23 13:00 09/06/23 14:00 Temperature Temperature Source Pulse Rate 83 105 H 99 Respiratory Rate 12 16 16 Respiratory Effort Blood Pressure 117/82 H 108/70 118/74 Blood Pressure Mean 93 82 88 Pulse Ox 100 99 99 Oxygen Delivery Method Room Air Room Air Room Air 09/06/23 15:00 09/06/23 16:11 09/06/23 16:11 Temperature 97.4 F L Temperature Source Pulse Rate 82 91 91 Respiratory Rate 16 16 16 Respiratory Effort Blood Pressure 104/64 107/69 107/69 Blood Pressure Mean 77 81 81 Pulse Ox 98 97 96 Oxygen Delivery Method Room Air Room Air Positive well nourished, well developed and no apparent distress General Appearance ED: well developed HEENT Reports normocephalic and head/scalp atraumatic Mouth ED: Yes moist mucous membranes normal Eyes PERRL and EOMs intact bilaterally Neck full ROM and supple Chest Wall inspection of chest normal Resp normal respiratory effort and clear to auscultation bilaterally Cardio regular rate and regular rhythm GI soft to palpation, non-tender, non-distended and no masses Back/Spine normal ROM and normal to inspection Extremity normal to inspection and full ROM Neuro oriented x3, CN's II-XII intact bilaterally, moves all extremities, no focal motor deficits and no sensory deficits noted Sensorium / Orientation: awake and alert Psych mental status grossly normal and thought process normal Skin no rashes or lesions noted and no wounds <Dr. Kris Carney DO - Last Filed: 09/06/23 17:29> Physical Exam Const Vital Signs: 09/06/23 11:48 09/06/23 12:54 09/06/23 12:55 Temperature 97.4 F L Temperature Source Temporal Pulse Rate 111 H Respiratory Rate 16 Respiratory Effort Normal Non-Labored Blood Pressure 143/86 H Blood Pressure Mean 105 Pulse Ox 100 Oxygen Delivery Method Room Air Room Air 09/06/23 12:56 09/06/23 13:00 09/06/23 14:00 Temperature Temperature Source Pulse Rate 83 105 H 99 Respiratory Rate 12 16 16 Respiratory Effort Blood Pressure 117/82 H 108/70 118/74 Blood Pressure Mean 93 82 88 Pulse Ox 100 99 99 Oxygen Delivery Method Room Air Room Air Room Air 09/06/23 15:00 09/06/23 16:11 09/06/23 16:11 Temperature 97.4 F L Temperature Source Pulse Rate 82 91 91 Respiratory Rate 16 16 16 Respiratory Effort Blood Pressure 104/64 107/69 107/69 Blood Pressure Mean 77 81 81 Pulse Ox 98 97 96 Oxygen Delivery Method Room Air Room Air [facility] <Sadie Heard PA - Last Filed: 09/06/23 16:45> [facility] Narrative Medical decision making narrative: Patient presenting today due to intermittent palpitations she has had since yesterday. She is well-appearing and in no acute distress. She does have a history of palpitations and has been worked up by cardiology for this in the past. She is seen Dr. Golden and was referred to electrophysiology after having a Holter monitor here. They did a heart catheterization which was unremarkable. She was on metoprolol at one point but reports that it made her blood pressure too low and he was taken off of it. She does have a history of left bundle branch block. Workup will be obtained. No history of thyroid dysfunction. D-dimer added due to recent travel to rule out PE and is negative. Troponin WNL and labs overall unremarkable. Chest x-ray negative for any acute findings. [place] was able to arrange a follow-up appointment with cardiology for the patient for 10/07. She does have a upcoming appointment with her PCP on Saturday. She may need a repeat Holter monitor. Return instructions given and she will be discharged home in stable condition. She is comfortable with plan. Lab Data Attestation: I reviewed the patient's lab results. Labs: Laboratory Results - last 24 hr 09/06/23 09/06/23 12:00 14:15 WBC 8.3 RBC 4.21 Hgb 13.4 Hct 39.1 MCV 92.9 MCH 31.8 MCHC 34.3 RDW Std Deviation 40.7 RDW Coeff of Hortencia 11.9 Plt Count 311 MPV 8.8 Immature Gran % (Auto) 0.200 Neut % (Auto) 63.6 Lymph % (Auto) 21.1 [place] % (Auto) 10.9 H Eos % (Auto) 3.5 Baso % (Auto) 0.7 Absolute Neuts (auto) 5.3 Absolute Lymphs (auto) 1.76 Nucleated RBC % 0 D-Dimer Quant (PE/DVT) < 0.27 L Sodium 139 Potassium 3.7 Chloride 106 Carbon Dioxide 27.0 Anion Gap 6 BUN 11 Creatinine 0.78 Estim Creat Clear Calc 92.31 Est GFR (MDRD) Af Amer 110 Est GFR (MDRD) Non-Af 91 BUN/Creatinine Ratio 14.1 Glucose 97 Calcium 8.8 Troponin I High Sens 26 24 Radiography X-Ray: Read by ED Physician and Read by Radiologist Diagnostic Testing: Clinical Impression(s) from Imaging Studies Chest X-Ray 09/06/23 13:32 IMPRESSION: Normal x-ray examination of the chest. Electronically Signed: Joe Mckeon MD at 14:05 EST , EKG Initial EKG: Comments: 1152: 96 bpm, normal sinus rhythm, nonspecific ST and T wave abnormality, no ST elevation, reviewed and interpreted by attending ED physician Repeat EKG at 1313: 96 bpm, normal sinus rhythm, no ST elevation, reviewed and interpreted by attending ED physician <Dr. Kris Carney, DO - Last Filed: 09/06/23 17:29> [facility] Lab Data Labs: Laboratory Results - last 24 hr 09/06/23 09/06/23 12:00 14:15 WBC 8.3 RBC 4.21 Hgb 13.4 Hct 39.1 MCV 92.9 MCH 31.8 MCHC 34.3 RDW Std Deviation 40.7 RDW Coeff of Hortencia 11.9 Plt Count 311 MPV 8.8 Immature Gran % (Auto) 0.200 Neut % (Auto) 63.6 Lymph % (Auto) 21.1 [place] % (Auto) 10.9 H Eos % (Auto) 3.5 Baso % (Auto) 0.7 Absolute Neuts (auto) 5.3 Absolute Lymphs (auto) 1.76 Nucleated RBC % 0 D-Dimer Quant (PE/DVT) < 0.27 L Sodium 139 Potassium 3.7 Chloride 106 Carbon Dioxide 27.0 Anion Gap 6 BUN 11 Creatinine 0.78 Estim Creat Clear Calc 92.31 Est GFR (MDRD) Af Amer 110 Est GFR (MDRD) Non-Af 91 BUN/Creatinine Ratio 14.1 Glucose 97 Calcium 8.8 Troponin I High Sens 26 24 Radiography Diagnostic Testing: Clinical Impression(s) from Imaging Studies Chest X-Ray 09/06/23 13:32 IMPRESSION: Normal x-ray examination of the chest. Electronically Signed: Joe Mckeon MD at 14:05 EST , Treatment and Re-Evaluation :: I have personally performed a face to face assessment of the patient and have reviewed the YISSEL Note. I performed a substantive portion of the visit including all aspects of the following. My muniz findings include: History: Patient presents with palpitations that began yesterday. Patient states she feels like her heart is racing and skipping beats. Patient states that waxes and wanes. Patient states it is better when she is able to sleep. Patient admits to some diaphoresis. Patient denies any shortness of breath or cough. Patient denies any chest pain. Patient denies any nausea or vomiting. Exam: Vital signs are stable. Patient is afebrile. Patient is in no acute distress. Oral mucosa is pink and moist. Neck is supple. Trachea is midline. There is no JVD. Heart was regular rate and rhythm. Lungs are clear and equal bilaterally. There is good respiratory effort noted. Abdomen is soft. Bowel sounds are normal. There is no tenderness. Cranial nerves II through XII are intact. There are no focal motor or sensory deficits noted. Medical Decision Making: Differential diagnosis includes cardiac dysrhythmia, cardiac ischemia, electrolyte abnormality, pulmonary embolism, pneumonia, pneumothorax, and anxiety. EKG will be obtained to assess for cardiac dysrhythmia and cardiac ischemia. CBC will be obtained to assess for leukocytosis and anemia. Basic metabolic profile will be obtained to assess for electrolyte abnormality and renal function. High-sensitivity troponin will be obtained to assess for cardiac ischemia. 2-hour repeat high-sensitivity troponin will be obtained to assess for ongoing cardiac ischemia. D-dimer will be obtained to assess for pulmonary embolism. Chest x-ray will be obtained to assess for pneumonia and pneumothorax. Portable 1 view chest x-ray was obtained. On my independent interpretation, lung yeung are clear. There is normal cardiac silhouette. Bony thorax is normal. There is no acute process noted. Radiologist also interpreted the x-ray and agrees. CBC was reviewed and was essentially within normal limits. Basic metabolic profile was reviewed and was within normal limits. High-sensitivity troponin was reviewed and was normal at 26. 2-hour repeat high-sensitivity troponin was reviewed and was normal at 24. D-dimer was reviewed and was normal at less than 0.27. EKG was obtained. On my independent interpretation, shows normal sinus rhythm. There are no acute ST or T wave changes noted. Repeat EKG was obtained. On my independent interpretation it shows normal sinus rhythm. There is a left bundle branch block pattern noted. Review of previous EKG shows that the patient has a history of prior left bundle branch block. Patient was noted to be on a cardiac specialist and was having intermittent wide-complex and narrow complexes. Patient was advised of her findings. Patient was instructed to follow-up with her primary care physician in 5 to 7 days. Patient understood and was agreeable with the plan. All questions were answered. Discharge Plan Triage Chief Complaint: Palpitations ED Midlevel Provider: Sadie Heard ED Provider: Kris Carney Dx/Rx/DC Orders Clinical Impression: Palpitations Instructions: ED Palpitations Prescriptions: No Action metoprolol tartrate 50 MG tablet 50 mg PO BID PRN (Reason: sinus tach) metronidazole 500 MG tablet 500 mg PO Q8H Qty: 21 0RF ciprofloxacin HCl 500 MG tablet 500 mg PO BID Qty: 14 0RF dicyclomine 10 MG capsule 20 mg PO TIDAC Qty: 20 0RF Primary Care Provider: Yovany Ying Referrals: Yovany Ying DO [Primary Care Provider] - Activity Restrictions/Additional Instructions: Please follow-up with cardiology and/or PCP. Return for any worsening of your symptoms. Disposition Disposition: Home, Self Care
--- NOTE | 2023-09-06 13:32 | RAD_ITS ---
STUDY: X-RAY CHEST REASON FOR EXAM: Female, 33 years old. Chest pain TECHNIQUE: Single AP portable view of the chest. COMPARISON: None. FINDINGS: EKG electrodes are seen. The lungs are clear and expanded. There is no demonstrated pleural abnormality. Normal size heart. Normal mediastinum and regino. Normal visualized pulmonary arteries. Normal visualized aortic arch and descending thoracic aorta. Normal visualized thoracic spine. Normal visualized ribs, clavicles, and shoulders. There is no demonstrated abnormality of the visualized soft tissue structures of the upper abdomen. RAD/Chest 1 View (Portable) IMPRESSION: Normal x-ray examination of the chest. Electronically Signed: Joe Mckeon MD at 14:05 EST ,
[2023-09-06 13:58] LABS: D-Dimer Quantitative (DVT/PE) < 0.27 FEU/ug/m (0.27-0.49)
[2023-09-06 14:00] VITALS: BP 118/74; PULSE 99; RESP 16; O2SAT 99
[2023-09-06 14:06] LABS: Reflex Troponin-HS? (from REC) Y
[2023-09-06 14:45] LABS: Troponin-I HS 24 pg/mL (3.0-54.0)
[2023-09-06 15:00] VITALS: BP 104/64; PULSE 82; RESP 16; O2SAT 98
--- OUTSIDE RECORDS SUMMARY | 2023-09-06 15:11 | XMS RPT_ITS | CCD ---
Author Name Unknown Address [address] [place] [address] Organization [facility] Results Test Name Value Interpretation Reference Range Facil ity Summary Purpose Family History No Family History Records FoundNo Family History Records Found Advance Directives No Advanced Directives Records FoundNo Advanced Directives Records Found Hospital Course Note HNO ID: [id number] Author: Dahlia Chatman Service: Electrophysiology Author Type: Physician Type: Discharge Summary Filed: 01/14/2019 12:09 PM Note Text: DISCHARGE NOTE (Patient Admitted Less than 48 Hours) SERVICE DATE: 01/14/2019 SERVICE TIME: 12:08 PM ADMISSION DATE: 01/14/2019 DISCHARGE DISPOSITION: Home/Self Care Zeina underwent a diagnostic EP study. She did not have any inducible arrhythmias but does have a rate related LBBB abberancy. She is to avoid exercise and strenuous activity for one week. DIET: Regular ACTIVITY AFTER DISCHARGE: Resume pre-hospital activity FOLLOW UP CARE REQUIRED: one month DISCHARGE MEDICATIONS (ONLY ACTIVATE WHEN READY TO DISCHARGE): Current Discharge Medication List CONTINUE these medications which have NOT CHANGED melatonin 10 mg cap Take by mouth as needed. metoprolol tartrate (short acting) (LOPRESSOR) 50 mg Take 50 mg by mouth twice daily. Refills: 11 FINAL DIAGNOSIS: Rate related left bundle branch abberrancy. No inducible arrhythmias. SIGNATURE (more content not included)... Additional Source Comments INFORMATION SOURCE (unrecogn ized section and content) DATE CREATED AUTHOR AUTHOR'S ENA FIGUEREDO 03/05/2019 [facility] FOR RECORDS PERTAINING TO PATIENTS WHO ARE OR HAVE BEEN ENROLLED IN A CHEMICAL DEPENDENCY/SUBSTANCEABUSE PROGRAM, SOME INFORMATION MAY BE OMITTED. This clinical summary was aggregated from multiple sources. Caution should be exercised in using it in the provision of clinical care. This summary normalizes information from multiple sources, and as a consequence, information in this document may materially change the coding, format and clinical context of patient data. In addition, data may be omitted in some cases. CLINICAL DECISIONS SHOULD BE BASED ON THE PRIMARY CLINICAL RECORDS. [facility] [employer] [facility]. provides no warranty or guarantee of the accuracy or completeness of information in this document.
[2023-09-06 16:11] VITALS: BP 107/69; PULSE 91; RESP 16; TEMP 36.3; O2SAT 96; O2SAT 97
== END 2023-09-06 16:12 | disposition home or self-care (01) ==
PROVIDERS: Physician Assistant; Emergency Provider Emergency Medicine; PCP Family Medicine; Visit Provider Emergency Medicine
DX: R00.2 Palpitations (principal)
CPT/HCPCS: 71045; 80048; 84484; 85025; 85379; 93005; 99284; A4216